=== PATIENT | male | born 1940 | race Caucasian/White ===

== ENCOUNTER 2018-05-15 05:46 | Day surgery (SDC) | payer OTHER ==
[2018-05-08 11:20] LABS: Potassium 4.5 mmol/L (3.5-5.1)
[2018-05-08 11:53] LABS: Absolute Lymphocytes (CBC) 2.3 K/uL (0.7-4.9); Absolute Monocytes 0.5 K/uL (0.1-1.3); Absolute Neutrophil 2.9 K/uL (1.8-8.0); Basophils % 2.4 % (0-1.3); Eosinophils % 2.9 % (0-4.4); Hematocrit 45.9 % (39.6-49.0); Lymphocytes % 37.4 % (15.3-44.8); MCH 31.8 pg (27.0-35.0); MCV 92.4 fL (80-100); MPV 9.3 fL (7.6-11.3); Monocytes % 8.7 % (3.3-12.3); RBC Red Blood Cell Count 4.96 M/uL (4.33-5.43)
[2018-05-15] MEDS ORDERED: Ringers Lactate 1,000 ML IV ONE ×2 (06:14→08:52)
[2018-05-15 06:23] LABS: Protime INR 1.01
[2018-05-15] MEDS ORDERED: PROPOFOL 200 MG/20 ML VIAL IV ONE (07:03)
[2018-05-15] MEDS ORDERED: LIDOCAINE 2% MPF 5 ML VIAL ONE (07:03)
[2018-05-15] MEDS ORDERED: MIDAZOLAM HCL 2 MG/2 ML INJ ONE (07:03)
[2018-05-15] MEDS ORDERED: ROCURONIUM 50 MG/5 ML VIAL IV ONE (07:04)
[2018-05-15] MEDS ORDERED: FENTANYL CITR 250 MCG/5 ML ONE (07:04)
[2018-05-15] MEDS ORDERED: ROPLVACAINE HCL 40 ML ONE (07:20)
[2018-05-15] MEDS ORDERED: DEXAMETHASONE 4 MG/ML VIAL ONE (07:20)
[2018-05-15] MEDS ORDERED: EPINEPHRINE/PF 1 MG/ML AMP ONE (07:23)
[2018-05-15] MEDS ORDERED: EPHEDRINE SULF 50 MG/10 ML SYR ONE (07:55)
[2018-05-15] MEDS ORDERED: ALBUMIN HUM 5% 250 ML IV ONE (08:26)
[2018-05-15] MEDS ORDERED: CEFAZOLIN 1GM (PREMIX IV) 1 GM/50 ML BAG ONE (08:54)
[2018-05-15] MEDS ORDERED: KETOROLAC 30 MG/ML INJ ONE (09:42)
--- NOTE | 2018-05-15 10:29 | P.BOP ---
Preoperative diagnosis: left shoulder rotator cuff tear, biceps tendinitis, impingement syndrome Postoperative diagnosis: same, left shoulder SLAP tear Primary procedure: left shoulder arthroscopic rotator cuff repair Secondary procedure: left shoulder arthroscopic SLAP debridement with biceps tenotomy Other procedure(s): left shoulder arthscopic subacromial decompression Hvac Controls Technician: NONE,NONE Estimated blood loss: <10 cc Specimen: none Findings: see dictation Anesthesia: General Complications: None Implants: 1- 5.5 mm arthrex corkscrew, 2- 4.75 mm arthrex swivelock Fluids & blood products: per anesthesia record Transferred to: Recovery Room Condition: Good
[2018-05-15] MEDS ORDERED: ONDANSETRON 4 MG/2 ML VIAL ONE (10:32)
--- NOTE | 2018-05-15 10:44 | RAD REPORT ---
EXAM DESCRIPTION: RAD - Shoulder 1 View - 05/15/2018 10:37 am CLINICAL HISTORY: s/p (L) RCR Left shoulder pain COMPARISON: No comparisons FINDINGS: Mild AC joint and glenohumeral joint arthritic changes are present. Soft tissue swelling i s seen about the shoulder. No fracture, dislocation or aggressive marrow pattern. Mild subacromial ou tlet narrowing is seen.
[2018-05-15] MEDS ORDERED: HYDROCODONE/APAP 7.5/325 MG TAB ONE (11:02)
--- NOTE | 2018-05-17 20:49 | OP ---
Date of Procedure: 05/15/2018 Surgeon: Jeramie Mariscal MD Preoperative Diagnoses: 1.Left shoulder rotator cuff tear. 2.Left shoulder bicipital tenosynovitis. 3.Left shoulder impingement syndrome. Procedure Performed: 1.Left shoulder arthroscopic rotator cuff repair. 2.Left shoulder arthroscopic biceps tenotomy with superior labrum debridement. 3.Left shoulder subacromial decompression. Anesthesia: General endotracheal. Fluids: Per Anesthesia record. Estimated Blood Loss: Less than 10 cc. Implants: 1.One 5.5 mm Arthrex Corkscrew. 2.Two 4.75 mm Arthrex SwiveLocks. Indication For Procedure: Kavon is a 78-year-old male who presented to my clinic with signs, symptoms and MRI findings consistent with a left shoulder rotator cuff tear, bicipital tenosynovitis as well as impingement syndrome. I discussed with the patient at length, risks and benefits associated with the operative and nonoperative treatment as well as postoperative rehabilitation. He expressed under standing and elected to proceed with operative treatment. Description Of Procedure: After informed consent was obtained, the patient was identified in the pre operative holding area. The left upper extremity was marked. The patient was then brought back to [facility] PACU where he underwent an interscalene block to his left upper extremity performed by Anesthesia. He was then transferred back to the operating room, transferred to the operative table in supine fa shion, and placed under general endotracheal anesthesia. [facility] then [facility] with the extremities well padded. The left upper extremity was examined. The patient had full ran ge of motion with no instability noted of the shoulder joint. The left upper extremity was then prep ped and draped in the usual sterile fashion. A time-out was initiated. The correct patient and proc edure were confirmed and identified. The patient did receive his preoperative prophylactic antibioti cs. Via the posterior portal position, a spinal needle was introduced in the glenohumeral joint and the glenohumeral joint was injected with 30 cc of normal saline to distend the capsule. A posterior portal was created and arthroscope was brought via the posterior portal position. A standard anterio r portal was made and a cannula was placed. A diagnostic arthroscopy was performed. The patient was noted to have no significant chondromalacia noted of his humeral head or glenoid surface. He was no jean claude to have some fraying of his superior labrum as well as some fraying of his biceps tendon and a bi ceps tenotomy was performed using a meniscal biter and the superior labrum was debrided using an arth roscopic shaver. The anterior and posterior labrum were found to be stable to probe and there were n o loose bodies within the axillary pouch. Subscapularis was also found to be intact with no signific ant tearing. The arthroscope was then noted within the body of supraspinatus on the intra-articular surface and the patient was noted to have a full-thickness tear. The lateral portal was created usin g a spinal needle and the spinal needle was brought intra-articularly demonstrating a full-thickness tear. Obturator was also used to drive through intra-articularly demonstrating full thickness tear. The arthroscope was then brought into the subacromial space and a subacromial bursectomy was perform ed using an arthroscopic shaver. The soft tissue was then debrided off the undersurface of the acrom ion using a radiofrequency ablator. The rotator cuff tear was then debrided using an arthroscopic sh aver. The supraspinatus footprint on the greater tuberosity was then debrided using an arthroscopic shaver to create a bleeding bony bed. A grasper was then used and it demonstrated reduction in tear pattern of the supraspinatus tear. A single 5.5 mm Corkscrew was placed for medial-row fixation. Amador tures were then passed in an [id number] fashion in a horizontal mattress fashion and they were tied down for medial-row fixation. There was good reduction of the rotator cuff tear onto the g reater tuberosity. The 2 lateral row suture anchors were then placed using 4.75-mm SwiveLock for a d ouble-row fixation. There was good reduction of the supraspinatus onto the greater tuberosity. One suture from the SwiveLock was then used to further reinforce the tear repair anteriorly. The remaini ng sutures were cut. There was noted to be some spurring of the undersurface of the acromion lateral ly and an acromioplasty was performed as well as a subacromial decompression using a radiofrequency a blator and an arthroscopic mike. Instruments were then removed without complication. The wounds wer e then irrigated thoroughly with normal saline and approximated using a 2-0 Vicryl and a 3-0 Monocryl . Sterile dressings were placed. The patient was placed in a shoulder immobilizer, awakened, and tr ansferred to PACU in stable condition. Postoperative Plan: He will follow the medium rotator cuff repair protocol and begin physical therap y at 6 weeks postoperatively. He will follow up in my clinic next week for wound check. NORAH/BELINDA Voice ID: [id number] Report ID: [id number]
== END 2018-05-15 11:58 | disposition home or self-care (01) ==
LOC: OR 05:46
PROVIDERS: ATTEND Orthopaedic Surgery Sports Medicine
PROC: 0RNK4ZZ Release Left Shoulder Joint, Percutaneous Endoscopic Approach (ICD-10-PCS; 2018-05-15)
PROC: 0RBK4ZZ Excision of Left Shoulder Joint, Percutaneous Endoscopic Approach (ICD-10-PCS; 2018-05-15)
PROC: 0LM24ZZ Reattachment of Left Shoulder Tendon, Percutaneous Endoscopic Approach (ICD-10-PCS; principal; 2018-05-15 07:30)
DX: M75.122 Complete rotator cuff tear or rupture of left shoulder, not specified as traumatic (principal); M75.22 Bicipital tendinitis, left shoulder; M75.42 Impingement syndrome of left shoulder; M19.90 Unspecified osteoarthritis, unspecified site; M54.12 Radiculopathy, cervical region; F17.210 Nicotine dependence, cigarettes, uncomplicated; Z79.82 Long term (current) use of aspirin; Z79.02 Long term (current) use of antithrombotics/antiplatelets; Z79.899 Other long term (current) drug therapy
CPT/HCPCS: 29827; 29826; 29823; 36415 ×2; 73020; 80048; 85025; 85610; 85730; J0171; J0690; J2250; J2405; J2704; J2795; J3010; P9045; 93005